=== PATIENT | female | born 1965 | race Caucasian/White ===

== ENCOUNTER 2017-05-28 11:44 | Emergency (ER) | payer MEDICAID, OTHER ==
[~2017-05-28] VITALS: Ht 157.5 cm; Wt 90.7 kg
[2017-05-28 11:44] VITALS: BP 114/74
[~2017-05-28 11:44] MED LIST: AMIT75TA2 PO; DULO60CA45 PO; GABA300C; GABA600T PO; MELO-264 PO; OMEP40CA37 PO; PRED-272 PO; PRED5TAB PO; PREG75CA PO; RANI150C4 PO; RANI75TA PO; TRAM100T14 PO
== END 2017-05-28 13:06 | disposition home or self-care (01) ==
LOC: ER 11:48
DX: G50.0 Trigeminal neuralgia (principal); M19.90 Unspecified osteoarthritis, unspecified site; K21.9 Gastro-esophageal reflux disease without esophagitis; G35 Multiple sclerosis
CPT/HCPCS: 99283; A4606; Z7610

== ENCOUNTER 2017-10-16 14:53 | Emergency (ER) | payer OTHER ==
[~2017-10-16] VITALS: Ht 170.2 cm; Wt 102.1 kg
[~2017-10-16 14:53] MED LIST changes: +MELO-107 PO; -MELO-264 PO; -RANI75TA PO; +[UNRECOGNIZED DRUG - CODE] PO
--- NOTE | 2017-10-16 15:00 | NUR ---
BBRA 889 FROM HOME: RED SPOTS ON LOWER EXTREMITIES. GENERALIZED WEAKNESS. PATIENT RECEIVED AWAKE AND ALERT,. APPEARS IN NO DISTRESS. RESPIRATION EVEN AND UNLABORED. SKIN IS WARM TO TOUCH AND NON DIAPHORETIC, PT IS AFEBRILE.
[2017-10-16 15:51] LABS: BASOPHILS % (AUTO) 0.6 % (0.0-2.0); EOSINOPHILS # (AUTO) 0.1 /CMM (0.0-0.7); EOSINOPHILS % (AUTO) 1.8 % (0.0-6.0); HEMATOCRIT 35 % (33-45); HEMOGLOBIN 11.6 g/dL (11.5-14.8); LYMPHOCYTES # (AUTO) 2.3 /CMM (0.8-4.8); LYMPHOCYTES % (AUTO) 29.4 % (20.0-44.0); MEAN CORPUSCULAR HEMOGLOBIN 29 PG (26.0-33.0); MEAN CORPUSCULAR HGB CONC 33 g/dl (31.0-36.0); MEAN CORPUSCULAR VOLUME 89 fL (82-100); MONOCYTES # (AUTO) 0.3 /CMM (0.1-1.30); MONOCYTES % (AUTO) 3.4 % (2.0-12.0); NEUTROPHILS # (AUTO) 5.2 /CMM (1.8-8.9); NEUTROPHILS % (AUTO) 64.8 % (43.0-81.0); PLATELET COUNT (AUTO) 197 /CMM (150-450); RDW COEFFICIENT OF VARIATION 15.7 (11.5-15.0); RED BLOOD CELL COUNT(AUTO) 3.93 MIL/uL (4.0-5.2); WHITE BLOOD COUNT (AUTO) 7.9 K/uL (4.3-11.0)
--- NOTE | 2017-10-16 15:57 | NUR ---
URINE SAMPLE SENT TO LAB
[2017-10-16] MEDS ORDERED: IV NS 0.9% 1,000 ML BAG IV ONE ×2 (16:00→17:00)
[2017-10-16 16:03] LABS: CALCIUM, SERUM 8.8 mg/dL (8.5-10.1); CREATININE 1.4 mg/dL (0.6-1.3); POTASSIUM 6.1 mmol/L (3.5-5.1)
[2017-10-16 16:06] LABS: APPEARANCE,URINE Clear (CLEAR); BILIRUBIN,URINE Negative (NEGATIVE); BLOOD, URINE Small Ery/uL (NEGATIVE); COLOR,URINE Yellow (YELLOW); KETONES,URINE Trace (NEGATIVE); LEUKOCYTE ESTERASE ,URINE Negative (NEGATIVE); NITRITE, URINE Positive (NEGATIVE); PH,URINE 5.5 (5.0-8.0); PROTEIN,URINE 30 mg/dl (NEGATIVE); UGLUCOSE 500 MG/DL mg/dL (NEGATIVE); UROBILINOGEN,URINE 0.2 EU/dL (0.2)
[2017-10-16 16:20] LABS: BACTERIA,URINE Many /HPF (None Seen); SQUAMOUS EPITHELIAL CELL,UR Few /HPF (None Seen)
[2017-10-16] MEDS ORDERED: SODIUM POLYSTYRENE SULFONATE 15 G/60 ML BOTTLE ONE (16:50)
[2017-10-16] MEDS ORDERED: INSULIN REGULAR, HUMAN 100 UNIT/ML 10 ML VIAL ONE (16:50)
[2017-10-16] MEDS ORDERED: FUROSEMIDE 20 MG/2 ML VIAL ONE (16:50)
[2017-10-16] MEDS ORDERED: DEXTROSE 50%-WATER 50 ML DISP.SYRIN ONE (16:51)
[2017-10-16] MEDS ORDERED: DEXTROSE 50%-WATER 50 ML DISP.SYRIN IV ONE (17:00)
[2017-10-16] MEDS ORDERED: FUROSEMIDE 40 MG/4 ML VIAL IV ONE (17:00)
[2017-10-16] MEDS ORDERED: INSULIN REGULAR, HUMAN 100 UNIT/ML 10 ML VIAL IV ONE (17:00)
[2017-10-16] MEDS ORDERED: SODIUM POLYSTYRENE SULFONATE 15 G/60 ML BOTTLE PO ONE (17:00)
[2017-10-16] MEDS ORDERED: ALBUTEROL FS 2.5 MG/3 ML VIAL.NEB NEB ONE (17:00)
--- NOTE | 2017-10-16 17:30 | NUR ---
RT MADE AWARE OF BREATHING TREATMENT
[2017-10-16] MEDS ORDERED: PRED10TA PO (17:36)
[2017-10-16] MEDS ORDERED: METH2.5T PO (17:36)
[2017-10-16] MEDS ORDERED: ERGO500040 PO (17:36)
[2017-10-16] MEDS ORDERED: CYCL5TAB PO (17:36)
[2017-10-16] MEDS ORDERED: FOLI1TAB16 PO (17:36)
[2017-10-16] MEDS ORDERED: PREG200C PO (17:36)
--- NOTE | 2017-10-16 18:38 | NUR ---
ZOYA, PATIENT'S HUSBAND0- CONSTANTLY UPDATE PT FOR ANY ANDREW
--- NOTE | 2017-10-16 18:48 | NUR ---
UNABLE TO CONNECT PATIENT TO TELE MONITOR AT THIS TIME, PER , WAIT TILL THE PATIENT IS DONE EATING
[2017-10-16] MEDS ORDERED: CEFEPIME 1 GM in IV D5W 50 ML IV ONE (19:00)
[2017-10-16] MEDS ORDERED: CEFEPIME 1 GM VIAL ONE (19:19)
[2017-10-16] MEDS ORDERED: ALBUTEROL FS 2.5 MG/3 ML VIAL.NEB ONE (19:20)
--- NOTE | 2017-10-16 19:33 | NUR ---
RECEIVED PATIENT ALERT AND RESPONSIVE. VSS. NAD NOTED. ONGOING BREATHING TREATMENT. WILL MONITOR. AT BEDSIDE.
[2017-10-16 20:28] VITALS: BP 111/64
--- NOTE | 2017-10-16 20:29 | NUR ---
Patient does not wish to proceed with medical care recommended by Dr. Abad. Patient and given information related to possible complications, up to and including , which could occur as a result of leaving the hospital at this time. Patient verbalizes understanding of risks involved due to leaving against medical advice. has signed AMA form for patient as said he has the power of banking attorney for patient. IV removed. Catheter intact and site benign. Pressure and 4x4 applied to site. No bleeding noted. Patient wheeled to private car. nad noted. vss.
== END 2017-10-16 20:38 | disposition left against medical advice (07) ==
LOC: ER 14:54
DX: N17.9 Acute kidney failure, unspecified (principal); E87.5 Hyperkalemia; R30.0 Dysuria; K21.9 Gastro-esophageal reflux disease without esophagitis; M19.90 Unspecified osteoarthritis, unspecified site; Z79.4 Long term (current) use of insulin; Z87.440 Personal history of urinary (tract) infections; Z53.20 Procedure and treatment not carried out because of patient's decision for unspecified reasons
CPT/HCPCS: 36415; 71045; 80048; 81001; 82962; 85025; 87077; 87081; 87086; 87186; 93005; 94644; 96361; 96365; 96375; 99291; A4216; A4606; J0692 ×2; J1815; J1940; J7030 ×2; J7060; Z7610; 81000-TC

== ENCOUNTER 2018-06-01 09:59 | Emergency (ER) | payer OTHER ==
[~2018-06-01] VITALS: Ht 172.7 cm; Wt 95.3 kg
[~2018-06-01 09:59] MED LIST changes: +CYCL5TAB PO; +ERGO500040 PO; +FOLI1TAB16 PO; -GABA300C; -GABA600T PO; +METH2.5T PO; -PRED-272 PO; +PRED10TA PO; -PRED5TAB PO; +PREG200C PO; -PREG75CA PO; -TRAM100T14 PO; +TRAM100T34 PO; -[UNRECOGNIZED DRUG - CODE] PO
--- NOTE | 2018-06-01 10:05 | NUR ---
TOMY FROM HOME DT ABDOMINAL PAIN, SHARP,8/10, NON RADIATING X 2 DAYS. PATIENT REPORTED NAUSEA AND VOMITTING,. SKIN IS WARM TO TOUCH AND NON DIAPHORETIC, PATIENT IS AFEBRILE.VSS
[2018-06-01] MEDS ORDERED: ONDANSETRON HCL/PF 4 MG/2 ML VIAL ONE (10:14)
[2018-06-01] MEDS ORDERED: IV NS 0.9% 500 ML BAG IV ONE (10:30)
[2018-06-01] MEDS ORDERED: ONDANSETRON HCL/PF 4 MG/2 ML VIAL IVP ONE (10:30)
[2018-06-01 10:35] LABS: BASOPHILS # (AUTO) 0.1 /CMM (0.0-0.2); BASOPHILS % (AUTO) 1.1 % (0.0-2.0); EOSINOPHILS % (AUTO) 0.7 % (0.0-6.0); HEMATOCRIT 37 % (33-45); HEMOGLOBIN 12.1 g/dL (11.5-14.8); LYMPHOCYTES # (AUTO) 1.8 /CMM (0.8-4.8); LYMPHOCYTES % (AUTO) 33.8 % (20.0-44.0); MEAN CORPUSCULAR HEMOGLOBIN 28 PG (26.0-33.0); MEAN CORPUSCULAR HGB CONC 33 g/dl (31.0-36.0); MEAN CORPUSCULAR VOLUME 85 fL (82-100); MONOCYTES # (AUTO) 0.4 /CMM (0.1-1.30); MONOCYTES % (AUTO) 7.4 % (2.0-12.0); NEUTROPHILS # (AUTO) 2.9 /CMM (1.8-8.9); PLATELET COUNT (AUTO) 154 /CMM (150-450); RDW COEFFICIENT OF VARIATION 16.8 (11.5-15.0); RED BLOOD CELL COUNT(AUTO) 4.39 MIL/uL (4.0-5.2); WHITE BLOOD COUNT (AUTO) 5.2 K/uL (4.3-11.0)
[2018-06-01] MEDS ORDERED: FERR325T23 PO (10:45)
[2018-06-01] MEDS ORDERED: TRAM50TA2 PO (10:45)
[2018-06-01] MEDS ORDERED: MYCO500T PO (10:45)
[2018-06-01 10:46] LABS: CALCIUM, SERUM 9.5 mg/dL (8.5-10.1); CREATININE 0.7 mg/dL (0.6-1.3)
[2018-06-01 10:51] LABS: ALBUMIN 3.7 g/dL (3.4-5.0); BILIRUBIN,DIRECT 0.3 mg/dL (0.0-0.2); TOTAL PROTEIN, SERUM 7.5 g/dL (6.4-8.2)
[2018-06-01] MEDS ORDERED: IV NS 0.9% 1,000 ML BAG IV ONE (11:00)
[2018-06-01 12:24] LABS: APPEARANCE,URINE Clear (CLEAR); BILIRUBIN,URINE Negative (NEGATIVE); BLOOD, URINE Negative Ery/uL (NEGATIVE); COLOR,URINE Yellow (YELLOW); KETONES,URINE Negative (NEGATIVE); LEUKOCYTE ESTERASE ,URINE Negative (NEGATIVE); NITRITE, URINE Negative (NEGATIVE); PROTEIN,URINE Trace mg/dl (NEGATIVE); UGLUCOSE Negative (NEGATIVE); UROBILINOGEN,URINE 0.2 EU/dL (0.2)
[2018-06-01 12:31] LABS: BACTERIA,URINE Rare /HPF (None Seen); RBC,URINE NONE SEEN /HPF (0-2); SQUAMOUS EPITHELIAL CELL,UR Few /HPF (None Seen); WBC,URINE NONE SEEN /HPF (0-3)
--- NOTE | 2018-06-01 12:43 | NUR ---
CALLED [facility] IN THE ADMITTING DEPT TO CALL [facility]REFERRED [facility] FOR POSSIBLE TRANSFER DX INTRACTIBLE NAUSEA AND VOMITING , REQUIRES MS BED
--- NOTE | 2018-06-01 13:54 | NUR ---
PER REANNA CARROLL. - CALL SHOULD BE MADE TO DR. DURBIN AT [phone]. DR. CORDERO INFORMED.
[2018-06-01] MEDS ORDERED: PREGABALIN 100 MG CAPSULE PO STA (14:24)
[2018-06-01] MEDS ORDERED: TRAMADOL HCL 50 MG TABLET ONE (14:27)
[2018-06-01] MEDS ORDERED: TRAMADOL HCL 50 MG TABLET PO ONE (14:30)
--- NOTE | 2018-06-01 14:40 | NUR ---
RECEIVED A CALL BACK FROM SHANDA AT [facility], SHE NOTIFIED ME THAT SHE SPOKE WITH THE ADMISSION DEPT AND THEY NOT HEARD FROM LUISA REGARDING THE PT
--- NOTE | 2018-06-01 16:57 | NUR ---
SHANDA FROM [facility] CALLED: ASSIGNED TO ROOM [id number]. NUMBER FOR REPORT IS [phone]
--- NOTE | 2018-06-01 17:09 | NUR ---
REQUESTED RUDDY MORAES
--- NOTE | 2018-06-01 17:17 | NUR ---
REPORT GIVEN TO MARY WINTERS FROM [employer] FOR ANDREW
[2018-06-01 18:19] VITALS: BP 135/80
== END 2018-06-01 18:21 | disposition short-term general hospital (02) ==
LOC: ER 10:00
DX: R11.2 Nausea with vomiting, unspecified (principal); M19.90 Unspecified osteoarthritis, unspecified site; K21.9 Gastro-esophageal reflux disease without esophagitis; G35 Multiple sclerosis; Z79.899 Other long term (current) drug therapy
CPT/HCPCS: 36415; 80048; 80076; 81001; 82550; 83605; 83690; 85025; 96361; 96374; 99285; A4606 ×2; J2405; J7030 ×2; J7040; Z7610; 81000-TC

== ENCOUNTER 2018-12-22 18:13 | Emergency (ER) | payer OTHER ==
[~2018-12-22] VITALS: Ht 167.6 cm; Wt 99.8 kg
[~2018-12-22 18:13] MED LIST changes: +FERR325T23 PO; +MYCO500T PO; +TRAM50TA2 PO
--- NOTE | 2018-12-22 18:22 | NUR ---
PT BIBRA FROM HOME C/O LEFT RIB PAIN; PT AAOX4, PT ON MONITOR, VSS, NAD NOTED, PENDING MD TAPIA
[2018-12-22] MEDS ORDERED: ONDANSETRON HCL/PF 4 MG/2 ML VIAL IVP ONE (18:30)
[2018-12-22] MEDS ORDERED: HYDROMORPHONE INJ 2 MG/ML DISP.SYRIN IV ONE (18:30)
[2018-12-22] MEDS ORDERED: IV NS 0.9% 500 ML BAG IV ONE (18:30)
--- NOTE | 2018-12-22 18:45 | NUR ---
IV LINE ESTABLISHED, LABS DRAWNED AND SENT TO LAB.
[2018-12-22] MEDS ORDERED: ONDANSETRON HCL/PF 4 MG/2 ML VIAL ONE (18:47)
[2018-12-22] MEDS ORDERED: HYDROMORPHONE 1 MG/1 ML DISP.SYRIN ONE (18:47)
[2018-12-22 18:48] LABS: BASOPHILS % (AUTO) 0.5 % (0.0-2.0); EOSINOPHILS % (AUTO) 1.3 % (0.0-6.0); HEMATOCRIT 31 % (33-45); LYMPHOCYTES # (AUTO) 2.7 /CMM (0.8-4.8); LYMPHOCYTES % (AUTO) 32.3 % (20.0-44.0); MEAN CORPUSCULAR HGB CONC 32 g/dl (31.0-36.0); MEAN CORPUSCULAR VOLUME 93 fL (82-100); MONOCYTES # (AUTO) 0.8 /CMM (0.1-1.30); MONOCYTES % (AUTO) 9.7 % (2.0-12.0); NEUTROPHILS # (AUTO) 4.8 /CMM (1.8-8.9); NEUTROPHILS % (AUTO) 56.2 % (43.0-81.0); PLATELET COUNT (AUTO) 159 /CMM (150-450); RED BLOOD CELL COUNT(AUTO) 3.35 MIL/uL (4.0-5.2); WHITE BLOOD COUNT (AUTO) 8.4 K/uL (4.3-11.0)
[2018-12-22 18:58] LABS: CALCIUM, SERUM 8.6 mg/dL (8.5-10.1); CARBON DIOXIDE 28 mmol/L (21-32); CHLORIDE 105 mmol/L (98-107); CREATININE 0.9 mg/dL (0.6-1.3); GLUCOSE 232 mg/dL (74-106); POTASSIUM 3.9 mmol/L (3.5-5.1); SODIUM SERUM 138 mmol/L (136-145); UREA NITROGEN, BLOOD 25 mg/dL (7-18)
[2018-12-22 19:10] LABS: ALANINE AMINOTRANSFERASE 48 U/L (12-78); ALBUMIN 3.6 g/dL (3.4-5.0); ALKALINE PHOSPHATASE 114 U/L (46-116); ASPARTATE AMINOTRANSFERASE 38 U/L (15-37); B-TYPE NATRIURETIC PEPTIDE 30 PG/ML (0-125); BILIRUBIN,DIRECT 0.3 mg/dL (0.0-0.2); BILIRUBIN,TOTAL 0.7 mg/dL (0.2-1.0)
[2018-12-22] MEDS ORDERED: CT SWABBABLE VALVE TRANS SET 1 EA INFUS.SET MC ONE (19:56)
[2018-12-22] MEDS ORDERED: IV NS 0.9% 250 ML IV ONE (19:56)
[2018-12-22] MEDS ORDERED: IOHEXOL-350 100 ML VIAL IV ONE (19:56)
[2018-12-22 22:49] VITALS: BP 102/51
--- NOTE | 2018-12-22 22:50 | NUR ---
Patient discharged to home in stable condition. Written and verbal after care instructions given. Patient verbalizes understanding of instruction. IV removed. Catheter intact and site benign. Pressure and 4x4 applied to site. No bleeding noted.
== END 2018-12-22 22:54 | disposition home or self-care (01) ==
LOC: ER 18:13
DX: R07.89 Other chest pain (principal); D64.9 Anemia, unspecified; R79.89 Other specified abnormal findings of blood chemistry; R09.02 Hypoxemia; G35 Multiple sclerosis; K21.9 Gastro-esophageal reflux disease without esophagitis; M19.90 Unspecified osteoarthritis, unspecified site; M79.7 Fibromyalgia; Z79.899 Other long term (current) drug therapy
CPT/HCPCS: 36415; 71045; 71275; 80048; 80076; 83880; 84484 ×2; 85025; 85730; 93005 ×2; 96374; 96375; 99284; J1170; J2405; J7030; J7050; Q9967

== ENCOUNTER 2019-07-02 13:25 | Inpatient (IN) | payer OTHER ==
[~2019-07-02] VITALS: Ht 157.5 cm; Wt 95.7 kg
--- NOTE | 2019-07-02 13:45 | NUR ---
PT [id number] FROM HOME "C/O GENERALIZED WEAKNESS, BACK PAIN WITH N/V". PT AAOX4, BREATHING EVEN AND UNLABORED. PT CONNECTED TO THE MONITOR
[2019-07-02] MEDS ORDERED: IV NS 0.9% 1,000 ML BAG IV ONE ×2 (14:00→14:30)
--- NOTE | 2019-07-02 14:00 | NUR ---
BLOOD COLLECTED AND SENT TO LAB
[2019-07-02] MEDS ORDERED: ACETAMINOPHEN ES 500 MG TABLET PO ONE (14:30)
[2019-07-02] MEDS ORDERED: IBUPROFEN 600 MG TABLET PO ONE ×2 (14:30→14:42)
[2019-07-02 14:35] LABS: MONOCYTES # (AUTO) 0.5 /CMM (0.1-1.30); NEUTROPHILS # (AUTO) 3.8 /CMM (1.8-8.9)
[2019-07-02 14:39] LABS: BASOPHILS % (AUTO) 0.1 % (0.0-2.0); EOSINOPHILS % (AUTO) 0.7 % (0.0-6.0); HEMATOCRIT 40 % (33-45); HEMOGLOBIN 13.1 g/dL (11.5-14.8); LYMPHOCYTES # (AUTO) 0.4 /CMM (0.8-4.8); LYMPHOCYTES % (AUTO) 8.1 % (20.0-44.0); MEAN CORPUSCULAR HGB CONC 33 g/dl (31.0-36.0); MEAN CORPUSCULAR VOLUME 86 fL (82-100); MONOCYTES % (AUTO) 9.8 % (2.0-12.0); NEUTROPHILS % (AUTO) 81.3 % (43.0-81.0); PLATELET COUNT (AUTO) 128 /CMM (150-450); RED BLOOD CELL COUNT(AUTO) 4.63 MIL/uL (4.0-5.2); WHITE BLOOD COUNT (AUTO) 4.6 K/uL (4.3-11.0)
[2019-07-02] MEDS ORDERED: ACETAMINOPHEN ES 500 MG TABLET ONE (14:42)
[2019-07-02 14:45] LABS: CALCIUM, SERUM 9.4 mg/dL (8.5-10.1); CARBON DIOXIDE 30 mmol/L (21-32); CHLORIDE 104 mmol/L (98-107); CREATININE 0.9 mg/dL (0.6-1.3); GLUCOSE 234 mg/dL (74-106); POTASSIUM 3.9 mmol/L (3.5-5.1); SODIUM SERUM 142 mmol/L (136-145); UREA NITROGEN, BLOOD 30 mg/dL (7-18)
[2019-07-02 14:51] LABS: ALANINE AMINOTRANSFERASE 63 U/L (12-78); ALBUMIN 3.5 g/dL (3.4-5.0); ALKALINE PHOSPHATASE 122 U/L (46-116); ASPARTATE AMINOTRANSFERASE 47 U/L (15-37); BILIRUBIN,DIRECT 0.2 mg/dL (0.0-0.2); BILIRUBIN,TOTAL 0.7 mg/dL (0.2-1.0); TOTAL PROTEIN, SERUM 7.3 g/dL (6.4-8.2)
[2019-07-02 16:30] LABS: APPEARANCE,URINE Clear (CLEAR); BILIRUBIN,URINE Negative (NEGATIVE); BLOOD, URINE Negative Ery/uL (NEGATIVE); COLOR,URINE Yellow (YELLOW); KETONES,URINE Negative (NEGATIVE); LEUKOCYTE ESTERASE ,URINE Negative (NEGATIVE); NITRITE, URINE Negative (NEGATIVE); PH,URINE 5.5 (5.0-8.0); PROTEIN,URINE Trace mg/dl (NEGATIVE); UGLUCOSE 250 MG/DL mg/dL (NEGATIVE); UROBILINOGEN,URINE 0.2 EU/dL (0.2)
[2019-07-02 16:37] LABS: BACTERIA,URINE Rare /HPF (None Seen); RBC,URINE NONE SEEN /HPF (0-2); SQUAMOUS EPITHELIAL CELL,UR Few /HPF (None Seen); WBC,URINE NONE SEEN /HPF (0-3)
[2019-07-02] MEDS ORDERED: VANCOMYCIN 1 GM in IV D5W 250 ML IV ONE (17:00)
[2019-07-02] MEDS ORDERED: PIPERACILLIN /TAZOBACTAM 3.375 G in IV D5W 50 ML IV ONE (17:00)
--- NOTE | 2019-07-02 18:05 | NUR ---
PTM SENT TO CT
[2019-07-02] MEDS ORDERED: IOHEXOL-350 100 ML VIAL IV ONE (18:09)
[2019-07-02] MEDS ORDERED: IV NS 0.9% 250 ML IV ONE (18:10)
[2019-07-02] MEDS ORDERED: CT SWABBABLE VALVE TRANS SET 1 EA INFUS.SET MC ONE (18:10)
--- NOTE | 2019-07-02 20:18 | NUR ---
GOING TO BED 116-1
--- NOTE | 2019-07-02 21:18 | NUR ---
REPORT GIVEN TO ELOISE HERNANDEZ
--- NOTE | 2019-07-02 21:30 | NUR ---
MICROBIOLOGY ANALYST ADMITTING NOTE RECEIVED PT ON GURNEY, AMBULATORY, AOX4, R/A, DENIES ANY PAIN, ST 100-120 ON MONITOR SEEN AND EVAL BY ER AND MAME, IV ON LAC#18G, PATENT, WITH NS@100ML/R, LACTIC TRENDING HIGH 3.1, R/O SEPSIS. SKIN INTACT, BRP, ALL NEEDS MET WELL SAFETY MEASURES IN PLACE.
--- NOTE | 2019-07-02 21:30 | NUR ---
PT TRANSFERED PER ACLS PROTOCOL.
[2019-07-02 22:00] VITALS: BP 105/50
[2019-07-02] MEDS ORDERED: IV NS 0.9% 1,000 ML IV PRN (22:00)
[2019-07-02] MEDS ORDERED: Z GUARD REMEDY 2 OZ OINT TP PRN (22:00)
[2019-07-02] MEDS ORDERED: CYCLOBENZAPRINE 10 MG TABLET PO PRN (22:00)
[2019-07-02] MEDS ORDERED: TRAMADOL HCL 50 MG TABLET PO SCH (22:00)
[2019-07-02] MEDS ORDERED: MAGNESIUM HYDROXIDE 30 ML UDC PO PRN (22:00)
[2019-07-02] MEDS ORDERED: ZOLPIDEM TARTRATE 5 MG TABLET PO PRN (22:00)
[2019-07-02] MEDS ORDERED: AMITRIPTYLINE HCL 25 MG TABLET PO SCH (22:00)
[2019-07-02] MEDS ORDERED: HYDROCODONE/APAP 5/325MG 1 EACH TABLET PO PRN (22:00)
[2019-07-02] MEDS ORDERED: ACETAMINOPHEN 325 MG TABLET PO PRN (22:00)
[2019-07-02] MEDS ORDERED: VANCOMYCIN 1 GM VIAL ONE (22:31)
[2019-07-02] MEDS ORDERED: VANCOMYCIN 1 GM in IV D5W 250ml IV SCH (23:00)
[2019-07-02] MEDS: MYCOPHENOLATE MOFETIL 250 MG CAPSULE PO SCH (23:16)
[2019-07-03] MEDS ORDERED: ONDANSETRON HCL/PF 4 MG/2 ML VIAL IVP PRN
[2019-07-03] MEDS ORDERED: PIPERACILLIN /TAZOBACTAM 3.375 G VIAL IV ONE ×2 (01:38→05:41)
[2019-07-03] MEDS: PIPERACILLIN /TAZOBACTAM 3.375 G in IV D5W 50 ML IV SCH ×2 (01:43→06:20)
[2019-07-03 02:00] VITALS: BP 105/50
[2019-07-03 03:29] LABS: BASOPHILS % (AUTO) 0.5 % (0.0-2.0); EOSINOPHILS % (AUTO) 1.4 % (0.0-6.0); HEMATOCRIT 31 % (33-45); LYMPHOCYTES % (AUTO) 13.6 % (20.0-44.0); MEAN CORPUSCULAR HGB CONC 33 g/dl (31.0-36.0); MEAN CORPUSCULAR VOLUME 86 fL (82-100); MONOCYTES # (AUTO) 0.9 /CMM (0.1-1.30); MONOCYTES % (AUTO) 12.6 % (2.0-12.0); NEUTROPHILS # (AUTO) 5.2 /CMM (1.8-8.9); NEUTROPHILS % (AUTO) 71.9 % (43.0-81.0); PLATELET COUNT (AUTO) 103 /CMM (150-450); WHITE BLOOD COUNT (AUTO) 7.3 K/uL (4.3-11.0)
[2019-07-03] MEDS ORDERED: PANTOPRAZOLE 40 MG VIAL IV SCH (03:30)
[2019-07-03 03:40] LABS: CALCIUM, SERUM 7.8 mg/dL (8.5-10.1); CREATININE 0.7 mg/dL (0.6-1.3); MAGNESIUM 1.5 mg/dL (1.8-2.4); PHOSPHORUS 3.6 mg/dL (2.5-4.9); POTASSIUM 3.8 mmol/L (3.5-5.1)
--- NOTE | 2019-07-03 06:40 | NUR ---
SOUVENIR AND NOVELTY MAKER CLOSING NOTE PT , AOX4, R/A, DENIES ANY PAIN, ST 100-120 ON MONITOR SEEN AND EVAL BY ER AND MAME, IV ON LAC#18G, PATENT, WITH NS@100ML/R, LACTIC LOW 1.5, R/O SEPSIS. SKIN INTACT, BRP, ALL NEEDS MET WELL SAFETY MEASURES IN PLACE.
--- NOTE | 2019-07-03 07:10 | NUR ---
RN INITIAL NOTE PATIENT IN BED, AWAKE AND ALERTX4. ON ROOM AIR, NO COMPLAINS OF SOB. ON TELE MONITOR, ST AT 100. PATIENT ON CLEAR LIQUIDS - ORDERED PAPO FROM KITCHEN. HAS A LEFT AC #18 WITH NS AT 100 ML/HR. LACTIC ACID TRENDING DOWN, AT 1.5 FROM 3.2. PATIENT COMPLAINING OF BACK PAIN BUT PER PATIENT SHE DOES NOT WANT ANY PAIN MEDS AT THIS TIME. WILL LET ME KNOW AFTER BREAKFAST. PER PATIENT - OK TO GIVE INFORMATION TO ZOYA, HER SIGNIFICANT OTHER Addendum: 07/03/19 at 0747 by MELISSA ORELLANA RN BED LOCKED AND IN LOWEST POSITION. CALL LIGHT WITHIN REACH, WILL CONTINUE TO MONITOR
[2019-07-03] MEDS ORDERED: PANTOPRAZOLE 40 MG TABLET.DR PO SCH (07:30)
[2019-07-03 07:39] VITALS: BP 105/50
[2019-07-03 08:00] VITALS: BP 93/62
[2019-07-03] MEDS ORDERED: VANCOMYCIN 1.25 GM in IV D5W 250 ML IV SCH (08:00)
[2019-07-03] MEDS: PREGABALIN 100 MG CAPSULE PO SCH ×2 (08:27→13:04)
[2019-07-03] MEDS: MYCOPHENOLATE MOFETIL 250 MG CAPSULE PO SCH (08:27)
[2019-07-03] MEDS: TRAMADOL HCL 50 MG TABLET PO SCH ×2 (08:50→13:04)
[2019-07-03] MEDS ORDERED: DULOXETINE HCL 30 MG CAPSULE.DR PO SCH (09:00)
[2019-07-03] MEDS ORDERED: FERROUS SULFATE (325 MG) 325 MG/TAB TABLET PO SCH (09:00)
[2019-07-03] MEDS ORDERED: FAMOTIDINE (20 MG) 20 MG TABLET PO SCH (09:00)
[2019-07-03] MEDS ORDERED: FOLIC ACID 1 MG TABLET PO SCH (09:00)
[2019-07-03] MEDS ORDERED: MELOXICAM 7.5 MG TABLET PO SCH (09:00)
[2019-07-03] MEDS ORDERED: predniSONE 10 MG TABLET PO SCH (09:00)
[2019-07-03] MEDS ORDERED: ENOXAPARIN SODIUM 40 MG/0.4 ML DISP.SYRIN SQ SCH (10:00)
[2019-07-03] MEDS ORDERED: Magnesium 1GM/D5W 100ML PREMIX 100 ML IV SCH (10:00)
[2019-07-03] MEDS ORDERED: ERGOCALCIFEROL (VITAMIN D 2) 50,000 UNIT CAPSULE PO SCH (10:00)
[2019-07-03 12:00] VITALS: BP 120/62
[2019-07-03] MEDS ORDERED: PIPERACILLIN /TAZOBACTAM 3.375 G in IV D5W 100 ML IV SCH (12:00)
--- NOTE | 2019-07-03 13:58 | NUR ---
RN NOTE REPORT GIVEN TO MARY ORDAZ AT [facility] FOR CONTINUE OF CARE PER CIVIL ENGINEER LAND DEVELOPMENT, CRITICAL CARE TECHNICIAN TIME IS AT 9874
--- NOTE | 2019-07-03 15:42 | NUR ---
PUPPET ENGINEER NOTE PATIENT GETTING PICKED UP BY AMBULANCE TO GO TO [facility]. PATIENT AWARE, EXIT CARE SIGNED BY PATIENT AND WAS GIVEN TO AMBULANCE PERSONNEL. VSS, HR WAS 102. NO COMPLAINS OF ANY PAIN NOR SOB AT THIS TIME. ALL BELONGINGS IN THE BELONGINGS BAG - INCLUDING CELLPHONE. BELONGINGS LIST SIGNED BY THE PATIENT. KEEPING THE IV SITE ON HER RIGHT FA #[id number]. REPORT GIVEN TO NURSE ORDAZ FOR CONTINUITY OF CARE. PATIENT'S SKIN INTACT, NO WOUND PHOTOS TO BE TAKEN.
[2019-07-03] MEDS ORDERED: VANCOMYCIN 1 GM in IV NS 0.9% 250 ML IV SCH (17:00)
[2019-07-05] MEDS ORDERED: METHOTREXATE SODIUM (2.5MG) 2.5 MG TABLET PO SCH (22:00)
== END 2019-07-03 15:50 | disposition short-term general hospital (02) | DRG 720 ==
LOC: ER 13:33 → TELE1 20:22
PROVIDERS: ADMIT Nurse Practitioner Acute Care; ATTEND Nurse Practitioner Acute Care
DX: A41.9 Sepsis, unspecified organism (principal); J90 Pleural effusion, not elsewhere classified; K85.90 Acute pancreatitis without necrosis or infection, unspecified; D68.59 Other primary thrombophilia; G35 Multiple sclerosis; R16.1 Splenomegaly, not elsewhere classified; M33.20 Polymyositis, organ involvement unspecified; K74.60 Unspecified cirrhosis of liver; G89.4 Chronic pain syndrome; K21.9 Gastro-esophageal reflux disease without esophagitis; K52.9 Noninfective gastroenteritis and colitis, unspecified; M79.7 Fibromyalgia; E66.9 Obesity, unspecified; Z74.01 Bed confinement status; Z68.38 Body mass index [BMI] 38.0-38.9, adult; J40 Bronchitis, not specified as acute or chronic; D64.9 Anemia, unspecified; R07.89 Other chest pain; E11.9 Type 2 diabetes mellitus without complications
CPT/HCPCS: 36415; 71045-TC; 80048-TC; 80061-TC; 80076-TC; 80202-TC; 81000-TC; 83605-TC; 83690-TC; 83735-TC; 84100-TC; 84484-TC; 85025-TC; 85730-TC; 87040-TC; 87081-TC; 87086-TC; 93307-TC; C9113; G0378; J1650; J2405; J2543; J3370; J3475; J7030; J7050; J7060; J7517; Q9967

== ENCOUNTER 2020-12-02 12:36 | Emergency (ER) | payer OTHER ==
[~2020-12-02] VITALS: Ht 157.5 cm; Wt 90.7 kg
[~2020-12-02 12:36] MED LIST changes: +OMEP40CA13 PO; -OMEP40CA37 PO
--- NOTE | 2020-12-02 12:36 | NUR ---
PT BIBRA 860 FROM HOME C/O FACIAL TRAUMA S/P TRIP AND FALL. -KO. PT IS AAOX4, NOT IN RESPIRATORY DISTRESS, HOOKED TO COMMANDER POLICE RESERVES, KEPT RESTED AND COMFORTABLE. WILL CONTINUE TO MONITOR.
--- NOTE | 2020-12-02 12:40 | NUR ---
SEEN AND EXAMINED BY
--- NOTE | 2020-12-02 13:16 | NUR ---
PT IS WHEELED TO CT SCAN VIA [facility].
--- NOTE | 2020-12-02 13:25 | NUR ---
[facility] [phone].
[2020-12-02] MEDS ORDERED: TRAM50TA2 PO (14:41)
[2020-12-02] MEDS ORDERED: HYDROCODONE/APAP 5/325MG TABLET ONE (14:41)
--- NOTE | 2020-12-02 14:49 | NUR ---
Patient discharged to home in stable condition. Written and verbal after care instructions given. Patient verbalizes understanding of instruction. Pt ambulatory with a steady gait
[2020-12-02] MEDS ORDERED: HYDROCODONE/APAP 5/325MG TABLET PO ONE (15:00)
[2020-12-02 15:14] VITALS: BP 143/89
== END 2020-12-02 15:14 | disposition home or self-care (01) ==
LOC: ER 12:39
DX: S00.33XA Contusion of nose, initial encounter (principal); S00.83XA Contusion of other part of head, initial encounter; R04.0 Epistaxis; K21.9 Gastro-esophageal reflux disease without esophagitis; M19.90 Unspecified osteoarthritis, unspecified site; Z79.899 Other long term (current) drug therapy; W01.198A Fall on same level from slipping, tripping and stumbling with subsequent striking against other object, initial encounter; Y93.89 Activity, other specified; Y92.89 Other specified places as the place of occurrence of the external cause; Y99.8 Other external cause status
CPT/HCPCS: 70450-TC; 70486-TC; 72125-TC

== ENCOUNTER 2021-02-25 14:34 | Emergency (ER) | payer OTHER ==
[~2021-02-25] VITALS: Ht 157.5 cm; Wt 90.7 kg
[2021-02-25 14:54] VITALS: BP 120/71
[2021-02-25] MEDS ORDERED: CEPH500C2 PO (15:06)
[2021-02-25] MEDS ORDERED: SULF1TAB48 PO (15:06)
--- NOTE | 2021-02-25 15:11 | NUR ---
Patient discharged to home in stable condition. Written and verbal after care instructions given. Patient verbalizes understanding of instruction.
== END 2021-02-25 15:12 | disposition home or self-care (01) ==
LOC: ER 14:35
DX: L03.113 Cellulitis of right upper limb (principal); K21.9 Gastro-esophageal reflux disease without esophagitis; M19.90 Unspecified osteoarthritis, unspecified site; M79.7 Fibromyalgia; G35 Multiple sclerosis; Z79.899 Other long term (current) drug therapy

== ENCOUNTER 2022-05-22 13:33 | Emergency (ER) | payer OTHER ==
[~2022-05-22] VITALS: Ht 165.1 cm; Wt 93.6 kg
[~2022-05-22 13:33] MED LIST changes: +CEPH500C2 PO; -OMEP40CA13 PO; +OMEP40CA21 PO; +SULF1TAB48 PO
--- NOTE | 2022-05-22 13:38 | NUR ---
[id number] FROM HOME FOR [facility] FALL. THE PATIENT TRIPPED ON `S OXYGEN TUBING AND FELL <1PTA. C/O LEFT ELBOW PAIN 10, RIGHT KNEE PAIN 4/10 AMBULATORY AT THE SCENE. -KO. HX LEFT ARM DX 9 MO AGO. THE PATIENT IS ALERT AND ORIENTED X3. IN ROOM AIR AND DENIES SOB. RESPIRATION REGULAR AND UNLABORED. WILL CONTINUE TO MONITOR THE PATIENT.
[2022-05-22] MEDS ORDERED: HYDROCODONE/APAP 5/325MG TABLET PO ONE (14:30)
[2022-05-22] MEDS ORDERED: HYDROCODONE/APAP 5/325MG TABLET ONE (14:55)
--- NOTE | 2022-05-22 14:56 | NUR ---
BINDER STRIPPER MACHINE AT THE BEDSIDE
--- NOTE | 2022-05-22 16:56 | NUR ---
Patient discharged to home in stable condition. Written and verbal after care instructions given. Patient verbalizes understanding of instruction.
[2022-05-22 16:57] VITALS: BP 119/58
== END 2022-05-22 16:58 | disposition home or self-care (01) ==
LOC: ER 13:34
DX: S62.112A Displaced fracture of triquetrum [cuneiform] bone, left wrist, initial encounter for closed fracture (principal); G35 Multiple sclerosis; K21.9 Gastro-esophageal reflux disease without esophagitis; M19.90 Unspecified osteoarthritis, unspecified site; Z79.899 Other long term (current) drug therapy; W18.09XA Striking against other object with subsequent fall, initial encounter; Y93.89 Activity, other specified; Y92.89 Other specified places as the place of occurrence of the external cause; Y99.8 Other external cause status
CPT/HCPCS: 73030-TC; 73080-TC; 73110

== ENCOUNTER 2022-05-29 15:08 | Emergency (ER) | payer OTHER ==
[~2022-05-29] VITALS: Ht 167.6 cm; Wt 113.4 kg
--- NOTE | 2022-05-29 15:10 | NUR ---
RECEIVED PT 57 YRS FEMALE CAME FROM HOME BY YO C/O PAIN ON LT ARM S/P FELL DOWN TODY
--- NOTE | 2022-05-29 15:30 | NUR ---
EATING TO BE SEEN BY PROVIDER
--- NOTE | 2022-05-29 16:50 | NUR ---
SW notified By STICKER ONLola about pt. with Hx. of multiple falls at home, MS, unable to care for self and is also unabelt care for her. SW will follow up and make APS report.
--- NOTE | 2022-05-29 17:18 | NUR ---
MOVE SHEET SUBMITTED.
--- NOTE | 2022-05-29 17:34 | NUR ---
CLINICALS SENT TO ADMITTING.
--- NOTE | 2022-05-29 18:00 | NUR ---
COVID SWABE SENT TO LAB
--- NOTE | 2022-05-29 18:02 | NUR ---
CALL [phone] DR. MARTINEZ AT [facility] FOR PEER TO PEER WHEN READY.
[2022-05-29 18:03] LABS: BASOPHILS % (AUTO) 0.5 % (0.0-2.0); EOSINOPHILS % (AUTO) 2.9 % (0.0-6.0); HEMATOCRIT 35 % (33-45); HEMOGLOBIN 11.7 g/dL (11.5-14.8); LYMPHOCYTES # (AUTO) 1.1 K/uL (0.8-4.8); LYMPHOCYTES % (AUTO) 29.3 % (20.0-44.0); MEAN CORPUSCULAR HGB CONC 33 g/dl (31.0-36.0); MEAN CORPUSCULAR VOLUME 84 fL (82-100); MONOCYTES # (AUTO) 0.4 K/uL (0.1-1.30); NEUTROPHILS % (AUTO) 56.3 % (43.0-81.0); PLATELET COUNT (AUTO) 82 K/uL (150-450); WHITE BLOOD COUNT (AUTO) 3.6 K/uL (4.3-11.0)
--- NOTE | 2022-05-29 18:27 | NUR ---
UA SENT TO LAB
[2022-05-29 18:46] LABS: BILIRUBIN,URINE SMALL (NEGATIVE); COLOR,URINE YELLOW (YELLOW); LEUKOCYTE ESTERASE ,URINE SMALL (NEGATIVE); NITRITE, URINE NEGATIVE (NEGATIVE); PH,URINE 6.5 (5.0-8.0); PROTEIN,URINE NEGATIVE (NEGATIVE); UGLUCOSE NEGATIVE (NEGATIVE); UROBILINOGEN,URINE >=8.0 EU/dL (0.2)
[2022-05-29 19:10] LABS: RBC,URINE 0-2 /HPF (0-2)
[2022-05-29 19:11] LABS: BACTERIA,URINE Moderate /HPF (None Seen); SQUAMOUS EPITHELIAL CELL,UR Moderate /HPF (None Seen)
--- NOTE | 2022-05-29 19:39 | NUR ---
HAND OFF RAD HERNANDEZ
--- NOTE | 2022-05-29 20:24 | NUR ---
Patient does not wish to proceed with medical care recommended by SIMBA Lomeli. Patient given information related to possible complications, up to and including , which could occur as a result of leaving the hospital at this time. Patient verbalizes understanding of risks involved due to leaving against medical advice. Patient has signed AMA form.
--- NOTE | 2022-05-29 20:25 | NUR ---
IV removed. Catheter intact and site benign. Pressure and 4x4 applied to site. No bleeding noted.
[2022-05-29 20:37] LABS: ALANINE AMINOTRANSFERASE 48 U/L (12-78); ALCOHOL, BLOOD < 3 mg/dL (0-0); ALKALINE PHOSPHATASE 183 U/L (46-116); ASPARTATE AMINOTRANSFERASE 45 U/L (15-37); BILIRUBIN,DIRECT 0.2 mg/dL (0.0-0.2); BILIRUBIN,TOTAL 0.6 mg/dL (0.2-1.0); CALCIUM, SERUM 8.8 mg/dL (8.5-10.1); CARBON DIOXIDE 28 mmol/L (21-32); CHLORIDE 110 mmol/L (98-107); CREATININE 0.6 mg/dL (0.6-1.3); GLUCOSE 159 mg/dL (74-106); SODIUM SERUM 144 mmol/L (136-145); TOTAL PROTEIN, SERUM 6.8 g/dL (6.4-8.2); UREA NITROGEN, BLOOD 19 mg/dL (7-18)
--- NOTE | 2022-05-29 20:49 | NUR ---
Patient discharged to home in stable condition. Written and verbal after care instructions given. Patient verbalizes understanding of instruction.
[2022-05-29 23:25] VITALS: BP 140/80
--- NOTE | 2022-05-30 08:55 | NUR ---
LYNDSEY completed APS REPORT #[id number]
== END 2022-05-29 23:25 | disposition home or self-care (01) ==
LOC: ER 15:09
DX: R53.1 Weakness (principal); R29.6 Repeated falls; Z20.822 Contact with and (suspected) exposure to COVID-19; Z53.29 Procedure and treatment not carried out because of patient's decision for other reasons; G98.8 Other disorders of nervous system; M19.90 Unspecified osteoarthritis, unspecified site; Z79.899 Other long term (current) drug therapy; R94.31 Abnormal electrocardiogram [ECG] [EKG]
CPT/HCPCS: 99285; 93005; 70450; 85025; 80048; 87077; 87086; 80076; 87186; 81001; 36415; 87081; 87426; 80320; 80307; C9803; G0480